=== PATIENT | male | born 1975 | race Caucasian/White ===

== ENCOUNTER 2019-09-25 11:48 | Outpatient (CLI) | payer BC ==
--- NOTE | 2019-09-25 17:35 | Diagnostic Imaging Report ---
Indication: Dyspnea Technique: 2 views of the chest Comparison: 02/14/2013 one view chest Findings: There is thoracolumbar scoliotic deformity again demonstrated. Lungs and pleural spaces remain clear. The heart size is normal. No significant interim change Impression: No acute process
== END 2019-09-25 13:48 | disposition home or self-care (01) ==
LOC: RAD 11:48
DX: R06.00 Dyspnea, unspecified (principal); R06.02 Shortness of breath
CPT/HCPCS: 71046